=== PATIENT | female | born 2000 | race African-American/Black ===

== ENCOUNTER 2023-02-24 06:45 | Emergency (ER) | payer MEDICAID ==
[~2023-02-24] VITALS: Ht 157.5 cm; Wt 68.0 kg
[2023-02-24 06:53] VITALS: BP_SYST 140
--- NOTE | 2023-02-24 06:53 | NUR ---
Patient to ER bed 5 to gown for evaluation. Side rails up. Report given to MICHAEL CARRILLO(REG).
--- NOTE | 2023-02-24 07:45 | NUR ---
ER at bedside examining patient.
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
--- NOTE | 2023-02-24 08:15 | NUR ---
Urine HCG done, results negative.
--- NOTE | 2023-02-24 08:20 | NUR ---
Contacted radiology no answer. notified no xray completion, overdue status.
[2023-02-24] MEDS ORDERED: SOM350 PO (09:35)
[2023-02-24] MEDS ORDERED: IBUP-1969 PO (09:35)
--- NOTE | 2023-02-24 09:59 | NUR ---
Patient given written and verbal discharge instructions and verbalizes understanding. ER MD discussed with patient the results and treatment provided. Patient in stable condition. ID arm band removed. Patient educated on pain management and to follow up with PMD. Opportunity for questions provided and answered. Medication side effect fact sheet provided.
[2023-02-24 10:01] VITALS: BP_SYST 140
== END 2023-02-24 09:59 | disposition home or self-care (01) ==
LOC: SED 06:45
DX: S70.02XA Contusion of left hip, initial encounter (principal); M54.50 Low back pain, unspecified; M54.2 Cervicalgia; Z79.899 Other long term (current) drug therapy; V89.9XXA Person injured in unspecified vehicle accident, initial encounter; Y93.89 Activity, other specified; Y92.89 Other specified places as the place of occurrence of the external cause; Y99.8 Other external cause status
CPT/HCPCS: 72040-TC; 72100-TC; 72170-TC; 81025; 99284